=== PATIENT | male | born 1980 | race Caucasian/White ===

== ENCOUNTER 2019-06-28 18:46 | Emergency (ER) | payer BC, OTHER ==
[2019-06-28 18:50] VITALS: BP 139/89; PULSE 89; RESP 20; TEMP 98
--- NOTE | 2019-06-28 19:30 | XR ---
EXAMINATION TYPE: XR wrist complete RT DATE OF EXAM: 06/28/2019 COMPARISON: NONE HISTORY: Wrist pain TECHNIQUE: 4 views FINDINGS: There is old ununited fracture of the waist of the scaphoid bone. I see no acute fracture. Intercarpal joint spaces are fairly normal. 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 No acute fracture.
--- NOTE | 2019-06-28 19:30 | XR ---
EXAMINATION TYPE: XR hand complete RT DATE OF EXAM: 06/28/2019 COMPARISON: NONE HISTORY: Wrist pain hand pain TECHNIQUE: 3 views FINDINGS: There is nondisplaced fracture of the scaphoid bone that appears old. I see no acute fractu re. Metacarpals are intact. Joint spaces are fairly normal. There are no erosions. 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 No acute fracture.
[2019-06-28] MEDS ORDERED: KETOROLAC 60 MG/2 ML VIAL IM STA (20:09)
--- NOTE | 2019-06-28 20:24 | ED ---
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 Patient reports that he has pain in the dorsal aspect of his right hand. Patient denies any fevers chills, IV drug use. Patient denies any falls or trauma. Patient reports that it does feel somewhat similar to his arthritis in the past. Systemic: Pt denies fatigue, fever/chills, rash. Pt denies weakness, night sweats, weight loss. Neuro: Pt denies headache, visual disturbances, syncope or pre-syncope. HEENT: Pt denies ocular discharge or irritation, otalgia, rhinorrhea, pharyngitis or notable lymphadenopathy. Cardiopulmonary: Pt denies chest pain, SOB, heart palpitations, dyspnea on exertion. Abdominal/GI: Pt denies abdominal pain, n/v/d. : Pt denies dysuria, burning w/ urination, frequency/urgency. Denies new onset urinary or bowel incontinence. MSK: Pt denies loss of strength or function in extremities. Neuro: Pt denies new onset weakness, paresthesias. - Related Data Previous Rx's Medication Instructions Recorded Cephalexin [Keflex] 250 mg PO Q6HR 5 Days day 10/25/14 Allergies Allergy/AdvReac Type Severity Reaction Status Date / Time No Known Allergies Allergy Verified 06/28/19 18:50 Review of Systems ROS Statement: Those systems with pertinent positive or pertinent negative responses have been documented in the HPI. ROS Other: All systems not noted in ROS Statement are negative. Past Medical History Past Medical History: No Reported History History of Any Multi-Drug Resistant Organisms: None Reported Past Surgical History: No Surgical Hx Reported Past Psychological History: No Psychological Hx Reported Smoking Status: Never smoker Past Alcohol Use History: Rare Past Drug Use History: None Reported General Exam - General Exam Comments Initial Comments: Constitutional: NAD, AOX3, Pt has pleasant affect. HEENT: NC/AT, trachea midline, neck supple, no lymphadenopathy. Posterior pharynx non erythematous, without exudates. External ears appear normal, without discharge. Mucous membranes moist. Eyes PERRLA, EOM intact. There is no scleral icterus. No pallor noted. Cardiopulmonary: RRR, no murmurs, rubs or gallops, no JVD noted. Lungs CTAB in anterior and posterior perales. No peripheral edema. Abdominal exam: Abdomen soft and non-distended. Abdomen non-tender to palpation in all 4 quadrants. Bowel sounds active in LLQ. No hepatosplenomegaly. No ecchymosis Neuro: CN II-XII grossly intact. No nuchal rigidity. No raccon eyes, no augustine sign, no hemotympanum. No cervical spinal tenderness. MSK: Dorsal aspect of right hand mildly tender to palpation. No erythema, full active range of motion. Capillary refill less than 2 seconds. Radial pulse +2. Sensation intact. No posterior calf tenderness bilaterally, homans sign negative bilaterally. Posterior tibialis and radial pulse +2 bilaterally. Sensation intact in upper and lower extremities. Full active ROM in upper and lower extremities, 5/5 stregnth. Limitations: no limitations Course Vital Signs 06/28/19 18:48 Temperature 98.0 F Pulse Rate 89 Respiratory 20 Rate Blood Pressure 139/89 O2 Sat by Pulse 99 Oximetry Medical Decision Making - Medical Decision Making 38-year-old male patient since the chief complaint of atraumatic right hand pain for 1 day. Afebrile signs stable, afebrile. Physical exam displayed dorsal a spect of hand mildly tender, no erythema no ecchymoses full active range of motion, sensation intact. Plain film of hand and wrist displayed old un-united scaphoid fracture. No acute fracture. Patient administered Toradol. Patient discharged with hand surgeon and PCP follow-up. Case discussed with Dr. Mace. Disposition Clinical Impression: Hand pain Disposition: HOME SELF-CARE Condition: Stable Instructions (If sedation given, give patient instructions): Hand Sprain (ED) Additional Instructions: Patient to adhere to previously discussed treatment plan and will take medication(s) as directed. Patient to follow up with PCP in 1-2 days. Patient to return to ED if symptoms do not improve. Follow-up with primary care provider and orthopedic consult. Return to ER condition worsens. Is patient prescribed a controlled substance at d/c from ED?: No Referrals: Tommy Maldonado MD [Primary Care Provider] - 1-2 days Sahil Can DO [Medical Doctor] - 1-2 days
== END 2019-06-28 20:35 | disposition home or self-care (01) ==
LOC: EC 18:46
DX: M79.641 Pain in right hand (principal); Z87.81 Personal history of (healed) traumatic fracture; Z87.39 Personal history of other diseases of the musculoskeletal system and connective tissue
CPT/HCPCS: 73110; 73130; 99284; 96372; J1885

== ENCOUNTER → 2019-11-01 | Outpatient (CLI) | payer BC ==
--- NOTE | 2019-11-01 09:39 | MM ---
Reason for exam: clinical finding. History: Excisional biopsy of the right breast, 1997. Physical Findings: Nurse did not find any significant physical abnormalities on exam. [facility] Diagnostic Mammo w CAD JOHN Bilateral CC and MLO view(s) were taken. The breast tissue is almost entirely fat. There is no discrete abnormality including area of concern. These results were verbally communicated with the patient and result sheet given to the patient on 11/01/19. ASSESSMENT: Incomplete: need additional imaging evaluation, BI-RAD 0 RECOMMENDATION: Ultrasound of the left breast. Manage patient on a clinical basis.
--- NOTE | 2019-11-01 09:40 | USB ---
Reason for exam: additional evaluation requested from abnormal screening. History: Excisional biopsy of the right breast, 1997. US Breast LT Left complete breast ultrasound includes all four quadrants, the retroareolar region and axilla. Finding demonstrates no cystic or solid lesion seen. These results were verbally communicated with the patient and result sheet given to the patient on 11/01/19. ASSESSMENT: Negative, BI-RAD 1 RECOMMENDATION: Clinical management of the left breast. Manage patient on a clinical basis.
== END | disposition home or self-care (01) ==
LOC: RADMAMWWP 08:29
PROVIDERS: ATTEND Internal Medicine
DX: N63.10 Unspecified lump in the right breast, unspecified quadrant (principal); N63.20 Unspecified lump in the left breast, unspecified quadrant
CPT/HCPCS: 77066

== ENCOUNTER 2020-06-13 08:28 | Emergency (ER) | payer OTHER, BC ==
[2020-06-13 08:43] VITALS: RESP 18; TEMP 99.2
[2020-06-13] MEDS ORDERED: HYDROmorphone 0.5 MG/0.5 ML SYRINGE IVP STA ×2 (08:44→11:26)
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
[2020-06-13 09:23] LABS: Basophils # (A) 0.1 k/uL (0-0.2); Basophils % (A) 1 %; Eosinophils # (A) 0.4 k/uL (0-0.7); Eosinophils % (A) 5 %; HCT 50.9 % (39.0-53.0); HGB 17.4 gm/dL (13.0-17.5); Lymphocytes # (A) 1.6 k/uL (1.0-4.8); Lymphocytes % (A) 19 %; MCH 29.5 pg (25.0-35.0); MCHC 34.1 g/dL (31.0-37.0); MCV 86.6 fL (80.0-100.0); Mean Platelet Volume 7.9; Monocytes # (A) 0.4 k/uL (0-1.0); Monocytes % (A) 5 %; Neutrophils # (A) 5.8 k/uL (1.3-7.7); Neutrophils % (A) 70 %; Platelet Count 282 k/uL (150-450); RBC 5.88 m/uL (4.30-5.90); RDW 13.1 % (11.5-15.5); WBC 8.4 k/uL (3.8-10.6)
--- NOTE | 2020-06-13 09:33 | XR ---
EXAMINATION TYPE: XR chest 1V DATE OF EXAM: 06/13/2020 COMPARISON: NONE HISTORY: Pain TECHNIQUE: Single frontal view of the chest is obtained. FINDINGS: There is no focal air space opacity, pleural effusion, or pneumothorax seen. The cardiac silhouette size is within normal limits. The osseous structures are intact. Overlying artifact limi ts the exam. There is a 1 cm nodule left upper lobe. Hypertrophic and degenerative change of the spin e. IMPRESSION: 1. 1 cm left upper lobe pulmonary nodule. Correlate with CT scan as clinically warranted.
[2020-06-13 09:34] LABS: ALT 32 U/L (4-49); AST 40 U/L (17-59); African American GFR (CKD) >90 (>60 ml/min/1.73 sqM); Albumin 4.4 g/dL (3.5-5.0); Alkaline Phosphatase 63 U/L (38-126); Anion Gap 10 mmol/L; Blood Urea Nitrogen 15 mg/dL (9-20); Calcium 9.1 mg/dL (8.4-10.2); Carbon Dioxide 22 mmol/L (22-30); Chloride 108 mmol/L (98-107); Glucose 131 mg/dL (74-99); Non-African American GFR(CKD) >90 (>60 ml/min/1.73 sqM); Potassium 4.1 mmol/L (3.5-5.1); Sodium 140 mmol/L (137-145); Total Bilirubin 0.6 mg/dL (0.2-1.3); Total Protein 6.9 g/dL (6.3-8.2)
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
[2020-06-13] MEDS ORDERED: HYDROmorphone 1 MG/ML 1 ML SYRINGE IVP STA ×2 (09:40→10:43)
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
[2020-06-13] MEDS ORDERED: KETOROLAC 30 MG/ML 1 ML VIAL IVP STA (10:42)
[2020-06-13 10:47] VITALS: BP 153/82; PULSE 69
== END 2020-06-13 11:45 | disposition other institution (70) ==
LOC: EC 08:28
DX: S72.491A Other fracture of lower end of right femur, initial encounter for closed fracture (principal); R91.1 Solitary pulmonary nodule; Z87.891 Personal history of nicotine dependence; V49.40XA Driver injured in collision with unspecified motor vehicles in traffic accident, initial encounter; Y92.410 Unspecified street and highway as the place of occurrence of the external cause; Y93.89 Activity, other specified
CPT/HCPCS: 36415; 93005; 80053; 85025; 73502; 73552; 71045; 72192; 99285; 96374; 96375; 96376 ×3; J1885; J1170 ×2